=== PATIENT | female | born 1950 | race Caucasian/White ===

== ENCOUNTER 2016-12-04 08:42 | Day surgery (SDC) | payer MEDICARE, BC ==
[~2016-12-04 08:42] MED LIST: RINGER'S SOLUTION,LACTATED 1,000 ML IV PRN
[2016-12-04 11:56] VITALS: BP 167/78
[2016-12-04] MEDS ORDERED: RINGER'S SOLUTION,LACTATED 1,000 ML IV PRN (12:05)
--- NOTE | 2016-12-04 17:20 | OR ---
Operative Report - Dictated Report Narrative: OPERATIVE REPORT DATE OF OPERATION: 12/04/2016 PREOPERATIVE DIAGNOSIS: No prior dedicated colon studies POSTOPERATIVE DIAGNOSIS: Incomplete colonoscopy due to sharp angulation in the sigmoid colon (exam only accomplished to approximately 25 cm) OPERATION: Incomplete colonoscopy due to anatomy SURGEON: Tyra Juárez MD ANESTHESIA: TAMIKA Khoury CRNA INDICATIONS FOR PROCEDURE: The patient is a 66-year-old female referred by Dr. Levy. The patient has had no previous dedicated colon studies. There is no family history of colon cancer. The patient moves her bowels about twice a day. FINDINGS: Very sharp angulation in the sigmoid colon at 25 cm with inability to negotiate safely. Normal exam to that level NARRATIVE OF PROCEDURE: The patient was identified in the holding area, and prior to the administration of anesthetic, a multidisciplinary timeout was observed. With the patient in the left lateral position and after the administration of intravenous sedation, the perineum was inspected. There was no evidence of pilonidal disease or skin breakdown. The external appearance of the anus was normal. Sphincter tone was good. The flexible fiberoptic colonoscope was inserted into the rectum which was insufflated with air. The rectal mucosa and submucosal vascular pattern appeared normal, the prep was seen to be complete. The scope was advanced through the sigmoid colon, to approximately 25 cm where sharp angulation was encountered. Despite the use of standard reduction maneuvers the corner could not be negotiated under direct vision. The scope was withdrawn to the rectum and readvanced on 3 separate occasions with similar result. The scope was therefore then slowly withdrawn in a circular fashion so that all aspects of distal colonic mucosa were inspected. The colon normal in caliber. Perhaps 1 diverticular opening was demonstrated. The haustral architecture appeared well preserved throughout with no evidence of external compression. The mucosa and submucosal vascular pattern appeared normal, specifically there was no gross evidence to suggest colitis or inflammatory bowel disease and no AV malformations were seen. No polyps were encountered. The scope was gradually withdrawn to the level of the rectum. As much insufflated air as possible was removed. The scope was withdrawn from the patient and the procedure terminated. The patient tolerated the anesthetic and procedure well without complication and was transferred back to the ambulatory surgery area awake and in stable condition. I explained to the patient that because of the anatomy a barium enema would need to be performed to complete evaluation of the proximal colon. She underwent a single contrast barium enema which did demonstrate the very tortuous sigmoid colon, however the colon appeared otherwise normal with no evidence of gross lesions. There was scattered diverticulosis noted. The patient remained stable throughout a period of postoperative observation. She denied abdominal discomfort, was able to tolerate by mouth intake, and was up without assistance. I shared the operative findings with the patient and she was given copies of the photographs which appear in the medical record. She was discharged home with instructions not to engage in hazardous activity today , but may resume normal activity tomorrow, and advance diet as tolerated. She is to continue those medications as listed in the history and physical exam. RECOMMENDATION: Given her anatomy, colon screening in the future should be preferentially performed with a contrast barium enema. Surveillance interval of 5 years is suggested with imaging studies. Reviewed and electronically signed
== END 2016-12-04 08:43 | disposition home or self-care (01) ==
LOC: AMB 08:42
PROVIDERS: ATTEND Surgery
PROC: 0DJD8ZZ Inspection of Lower Intestinal Tract, Via Natural or Artificial Opening Endoscopic (ICD-10-PCS; principal; 2016-12-04 10:00)
DX: Z12.11 Encounter for screening for malignant neoplasm of colon (principal); I10 Essential (primary) hypertension; E78.5 Hyperlipidemia, unspecified; Z87.891 Personal history of nicotine dependence; Z68.38 Body mass index [BMI] 38.0-38.9, adult
CPT/HCPCS: 74270; G0104

== ENCOUNTER 2017-01-08 11:11 | Emergency (ER) | payer MEDICARE, BC ==
--- NOTE | 2017-01-08 11:34 | ERNOTE ---
Lower Extremity HPI - Narrative Date of Service: 01/08/17 - General Lower Extremities Pain: foot: right, ankle: right, 1st toe: right Time Seen by Provider: 01/08/17 11:22 Source: patient, family Exam Limitations: no limitations - Immun/Allergies/Home Medications Immunizations: IMMUNIZATION HX History of Influenza Vaccine No Hx Pneumococcal Vaccination No Allergies/Adverse Reactions: Allergies Allergy/AdvReac Type Severity Reaction Status Date / Time spinach Allergy Mild Hives Verified 01/08/17 11:20 azithromycin AdvReac DOESNT WORK Verified 01/08/17 11:20 [From Zithromax Z-Martin] Home Medications: HOME MEDICATIONS ALPRAZolam [Xanax] 0.25 - 0.5 mg PO Q6H PRN 11/21/16 [Last Taken Unknown] Calcium Carbonate [Tums] 300 mg PO DAILY PRN 11/21/16 [Last Taken Unknown] Hydrochlorothiazide [Hydrodiuril] 25 mg PO DAILY 11/21/16 [Last Taken Unknown] Metoprolol Succinate [Toprol Xl] 50 mg PO DAILY 11/21/16 [Last Taken Unknown] Rosuvastatin Calcium [Crestor] 20 mg PO DAILY 11/21/16 [Last Taken Unknown] Ibuprofen [Motrin] 600 mg PO Q6H PRN #30 tab 01/08/17 [Last Taken Unknown] - History of Present Illness Narrative: Patient is a 66-year-old patient female who presents to the emergency room complaining of right lateral ankle pain and pain at the base of the great toe. Pain started this morning, 2 hours ago when she slipped and fell apparently how foot got caught into a couple of rocks and she twisted her foot. A baseline she I'm placed without a cane with no problems however walking to the emergency room today she reports and was seen using her cane for ambulation. Occurred: this morning Location of Incident: home Method of Injury: Reports: fell, twisted Reason for Fall: Reports: lost balance, slipped Loss of Consciousness: Reports: no loss of consciousness Associated Symptoms: Reports: none Other Injuries: Reports: none Subsequent Symptoms: Denies: sensory loss, numbness, motor loss, bowel/bladder problem Review of Systems - Review of Systems Constitutional: Present: no symptoms reported EYE: Present: no symptoms reported ENT: Present: no symptoms reported Respiratory: Present: no symptoms reported Cardiology: Present: no symptoms reported Gastrointestinal/Abdominal: Present: no symptoms reported Musculoskeletal: Present: See HPI Skin: Present: no symptoms reported Neurological: Present: no symptoms reported Endocrine: Present: no symptoms reported - Patient's Past Medical History Patient History - Medical: Arthritis, Other Patient History - Cardiac/Respiratory: Hypertension, Hyperlipidemia, Other Patient History - Cancer: No Hx of Cancer Patient History - Surgical Procedures: Hysterectomy, Tubal Ligation Patient History - Other: None - Family History Mother Family History - Medical: , No pertinent hx Family History - Cardiac/Respiratory: No pertinent hx Family History - Cancer: Lung Father Family History - Medical: , No pertinent hx Family History - Cardiac/Respiratory: Hypertension, Myocardial Infarction, Other Family History - Cancer: No pertinent family hx - Social History Living Situations: home Abuse History: No History of abuse Psych History: Hx of Anxiety, Hx of Depression, Current tx/ever been on anti- depressants or anti-anxiety meds - Immunizations Hx Pneumococcal Vaccination: No History of Influenza Vaccine: No Physical Exam - Physical Exam General Appearance: Present: wd/wn, alert, no apparent distress Head Exam: Present: normal inspection, no evidence of injury Eye Exam: Normal inspection: bilateral, PERRL: bilateral, EOMI: bilateral Neck: Present: normal inspection, nontender Respiratory: Present: no respiratory distress, normal breath sounds Cardiovascular/Chest: Present: regular rate, rhythm, no murmur, normal peripheral pulses Gastrointestinal/Abdominal: Present: normal bowel sounds, nontender, nondistended, soft Extremity Exam: Present: normal inspection, no edema, other - she appears to be exquisitely tender when the right distal fibular was palpated. She is also tender when the base of the great toe was also palpated. Neurological Exam: Present: alert, oriented, normal mood/affect, no motor/ sensory deficits Skin Exam: Present: normal color, warm/dry, cool/dry, diaphoresis ED Progress - Results and Orders Patient's Lab Results:: I have reviewed the patient's lab results. - Vital Signs Patient's Vital Signs:: I have reviewed the patient's vital signs. Vital Signs: Vital Signs 01/08/17 11:16 Temperature 36.3 C L Pulse Rate 80 Respiratory 12 Rate Blood Pressure 135/75 O2 Sat by Pulse 96 Oximetry - X-Ray X-Ray #1 X-Ray: foot Interpretation: Interp. by me, Reviewed by me - Progress/Reassessment Chief Complaint: Lower Extremity Pain/ Injury Progress:: Unchanged - Transfer of Care Expected Disposition: Discharge Departure Clinical Impression: Foot pain, right Right ankle injury Qualifiers: Encounter type: initial encounter Qualified Code(s): S99.911A - Unspecified injury of right ankle, initial encounter - Departure Disposition: Home self-care Condition: Stable Instructions: Ankle Sprain, [id number] Referrals: Regla Levy MD [Primary Care Provider] - Prescriptions: Ibuprofen [Motrin] 600 mg PO Q6H PRN #30 tab PRN Reason: Pain
[2017-01-08 13:14] VITALS: BP 120/73
== END 2017-01-08 13:16 | disposition home or self-care (01) ==
LOC: ER 11:11
PROC: 2W3QX1Z Immobilization of Right Lower Leg using Splint (ICD-10-PCS; principal; 2017-01-08)
DX: S99.911A Unspecified injury of right ankle, initial encounter (principal); M79.671 Pain in right foot; E78.5 Hyperlipidemia, unspecified; I10 Essential (primary) hypertension; F41.9 Anxiety disorder, unspecified; W01.0XXA Fall on same level from slipping, tripping and stumbling without subsequent striking against object, initial encounter; Y92.009 Unspecified place in unspecified non-institutional (private) residence as the place of occurrence of the external cause